=== PATIENT | male | born 1980 ===

== ENCOUNTER → 2019-10-10 10:44 | Outpatient (CLI) | payer OTHER | END | disposition home or self-care (01) | LOC: LAB 10:44 | DX: J11.1 Influenza due to unidentified influenza virus with other respiratory manifestations (principal) ==

== ENCOUNTER 2025-07-01 12:21 | Outpatient (CLI) | payer OTHER ==
[~2025-07-01 12:21] MED LIST: DICLOFENAC POTA50 MG PO; METAXALONE800 MG PO
== END 2025-07-01 12:35 | disposition home or self-care (01) ==
LOC: MRI 12:21
PROVIDERS: ATTEND Physical Medicine & Rehabilitation
DX: M54.51 Vertebrogenic low back pain (principal)
CPT/HCPCS: 72148